=== PATIENT | male | born 1950 | race Caucasian/White ===

== ENCOUNTER 2018-11-15 15:56 | Outpatient (REF) | payer MEDICARE, SELFPAY ==
[2018-11-15 22:29] LABS: Abs Immature Grans 0.02 k/cumm (0.0-0.09); Absolute Eosinophil Count 0.06 k/cumm (0.0-0.7); Absolute Lymphocyte Count 2.17 k/cumm (1.2-3.4); Absolute Monocyte Count 0.55 k/cumm (0.11-0.7); Absolute Neutrophil Count 2.74 k/cumm (1.2-6.7); Eosinophils % 1.1; HCT 37.1 % (40.0-50.0); HGB 12.8 g/dL (13.5-17.5); Immature Grans % 0.4; Lymphocytes % 39.2; Mean Corp. HGB Concentration 34.5 g/dL (32.0-36.0); Mean Corpuscular Volume 104.2 fL (80-95); Mean Platelet Volume 10.1 fL (8.0-11.0); Monocytes % 9.9; Neutrophils % 49.4; RBC 3.56 m/cumm (4.50-6.00); RBC Distribution Width 12.9 % (11.8-14.1); White Blood Cell Count 5.54 k/cumm (4.4-10.8)
[2018-11-15 22:59] LABS: ALT 29 U/L (12-78); AST 33 U/L (15-37); Albumin 3.9 g/dL (3.4-5.0); Alkaline Phosphatase 68 U/L (46-116); Anion Gap 8.5 mmol/L (3-11); BUN 9 mg/dL (7-18); Bilirubin, Total 0.7 mg/dL (0.2-1.0); CO2 25.5 mmol/L (21.0-32.0); CREATININE 0.94 mg/dL (0.70-1.30); Calcium 8.4 mg/dL (8.5-10.1); Chloride 108 mmol/L (98-107); Glucose 99 mg/dL (70-100); Sodium 142 mmol/L (136-145); Total Protein 6.7 g/dL (6.4-8.2); Vitamin B12 486 pg/mL (193-986)
[2018-11-15 23:04] LABS: Platelet Count 96 x1000/uL (130-400)
[2018-11-15 23:06] LABS: Diff Comment PLT Morph Reviewed; Macrocytosis 2+
== END 2018-11-15 16:16 ==
LOC: NCHCN 15:56
PROVIDERS: PCP Family Medicine; Visit Provider Family Medicine
DX: D69.6 Thrombocytopenia, unspecified (principal); D46.9 Myelodysplastic syndrome, unspecified; E53.8 Deficiency of other specified B group vitamins; R53.83 Other fatigue
CPT/HCPCS: 80053; 82607; 84443; 85025

== ENCOUNTER 2018-12-27 12:35 | Outpatient (REF) | payer MEDICARE, SELFPAY ==
[2018-12-27 21:32] LABS: Mean Corp. HGB Concentration 34.4 g/dL (32.0-36.0); Mean Corpuscular Hemoglobin 36.5 pg (27.0-33.0); Mean Corpuscular Volume 106.3 fL (80-95); Platelet Count 101 x1000/uL (130-400); RBC 3.01 m/cumm (4.50-6.00); RBC Distribution Width 13.4 % (11.8-14.1); White Blood Cell Count 4.34 k/cumm (4.4-10.8)
[2018-12-27 21:38] LABS: ALT 35 U/L (12-78); AST 101 U/L (15-37); Alkaline Phosphatase 73 U/L (46-116); Anion Gap 10.5 mmol/L (3-11); BUN 22 mg/dL (7-18); Bilirubin, Total 1.7 mg/dL (0.2-1.0); CO2 25.5 mmol/L (21.0-32.0); CREATININE 1.85 mg/dL (0.70-1.30); Calcium 8.9 mg/dL (8.5-10.1); Chloride 106 mmol/L (98-107); Estimated GFR 36.76 (mL/min/1.73m2); Glucose 122 mg/dL (70-100); Lipase 189 U/L (73-393); Potassium 3.8 mmol/L (3.5-5.1); Sodium 142 mmol/L (136-145); Total Protein 6.3 g/dL (6.4-8.2)
[2018-12-28 16:06] LABS: LDH 1674 U/L (85-227)
[2018-12-30 12:25] LABS: Haptoglobin <7 mg/dL (32-197)
== END 2018-12-27 12:55 ==
LOC: NCHCN 12:35
PROVIDERS: PCP Family Medicine; Visit Provider Internal Medicine
DX: R10.13 Epigastric pain (principal); R13.10 Dysphagia, unspecified; R11.10 Vomiting, unspecified
CPT/HCPCS: 80053; 83690; 85027; 83010; 83615; 86880

== ENCOUNTER 2018-12-29 00:31 | Outpatient (CLI) | payer MEDICARE, SELFPAY ==
--- NOTE | 2018-12-29 11:30 | DI.RAD_ITS ---
SYMPTOMS/DIAGNOSIS: DYSPHAGIA, R13.10, EPIGASTRIC PAIN, R10.13, VOMITING, R11.10 BARIUM SWALLOW: Fluoroscopy Time: 58 sec Barium swallow was performed according to protocol. There is normal swallowing mechanism. No aspiration or gastroesophageal reflux was seen during the examination. No intrinsic or extrinsic masses, strictures or ulcers are present. IMPRESSION: Unremarkable barium swallow.
[2018-12-29] MEDS: Barium Sulfate 60% W/V 355 ML BTL PO (12:20)
== END 2018-12-29 00:51 ==
PROVIDERS: PCP Internal Medicine; Visit Provider Internal Medicine
DX: R13.10 Dysphagia, unspecified (principal); R10.13 Epigastric pain; R11.10 Vomiting, unspecified
CPT/HCPCS: 74220; J3490

== ENCOUNTER 2019-02-15 15:31 | Outpatient (REF) | payer MEDICARE, SELFPAY ==
[2019-02-15 21:08] LABS: Abs Immature Grans 0.02 k/cumm (0.0-0.09); Absolute Eosinophil Count 0.07 k/cumm (0.0-0.7); Absolute Lymphocyte Count 1.01 k/cumm (1.2-3.4); Absolute Monocyte Count 0.69 k/cumm (0.11-0.7); Absolute Neutrophil Count 3.45 k/cumm (1.2-6.7); Eosinophils % 1.3; HCT 25.9 % (40.0-50.0); HGB 8.5 g/dL (13.5-17.5); Immature Grans % 0.4; Lymphocytes % 19.3; Mean Corp. HGB Concentration 32.8 g/dL (32.0-36.0); Mean Corpuscular Hemoglobin 33.9 pg (27.0-33.0); Mean Corpuscular Volume 103.2 fL (80-95); Mean Platelet Volume 10.1 fL (8.0-11.0); Monocytes % 13.2; Neutrophils % 65.8; Platelet Count 113 x1000/uL (130-400); RBC 2.51 m/cumm (4.50-6.00); RBC Distribution Width 12.4 % (11.8-14.1); White Blood Cell Count 5.24 k/cumm (4.4-10.8)
[2019-02-15 21:22] LABS: Anion Gap 12.6 mmol/L (3-11); BUN 18 mg/dL (7-18); CO2 26.4 mmol/L (21.0-32.0); CREATININE 1.13 mg/dL (0.70-1.30); Calcium 8.5 mg/dL (8.5-10.1); Chloride 101 mmol/L (98-107); Glucose 106 mg/dL (70-100); Potassium 3.1 mmol/L (3.5-5.1); Sodium 140 mmol/L (136-145)
== END 2019-02-15 15:51 ==
LOC: NCHCN 15:31
PROVIDERS: PCP Internal Medicine; Visit Provider Specialist/Technologist Athletic Trainer
DX: D69.6 Thrombocytopenia, unspecified (principal); D46.9 Myelodysplastic syndrome, unspecified; Z79.01 Long term (current) use of anticoagulants
CPT/HCPCS: 80048; 85025

== ENCOUNTER 2019-03-22 10:09 | Outpatient (RCR) | payer MEDICARE, SELFPAY ==
[2019-03-22] MEDS: MAGNESIUM SULFATE 2 GM/50 ML BAG IV (10:56)
[2019-03-22] MEDS: Normal Saline Flush 10 ML SYR IVP (10:57)
== END 2019-04-20 23:59 | disposition home or self-care (01) ==
LOC: INF 10:09
PROVIDERS: PCP Internal Medicine; Visit Provider Internal Medicine
DX: E83.42 Hypomagnesemia (principal)
CPT/HCPCS: 96365; 96366

== ENCOUNTER 2023-10-26 15:45 | Outpatient (REF) | payer MEDICARE, SELFPAY ==
[2023-10-26 15:57] LABS: HCT 38.3 % (40.0-50.0); HGB 12.7 g/dL (13.5-17.5); MCH 33.9 pg (27.0-33.0); MCHC 33.2 % (32.0-36.0); MCV 102 fL (80-95); MPV 9.2 fL (8.0-11.0); Platelet Count 170 10^3/uL (130-400); RBC 3.75 10^6/uL (4.36-5.78); RDW 13.4 % (11.8-14.1); RDW-SD 50.1 fL; WBC 4.28 10^3/uL (4.4-10.8)
[2023-10-26 16:17] LABS: ALT 21 U/L (16-63); AST 13 U/L (15-37); Albumin 3.8 g/dL (3.4-5.0); Alkaline Phosphatase 54 U/L (46-116); Anion Gap 8.3 mmol/L (3-11); BUN 14 mg/dL (7-18); Bilirubin, Total 0.6 mg/dL (0.2-1.0); CO2 25.7 mmol/L (21.0-32.0); CREATININE 0.9 mg/dL (0.70-1.30); Calcium 8.8 mg/dL (8.5-10.1); Chloride 107 mmol/L (98-107); Estimated GFR 91.31 (mL/min/1.73m2); Glucose 98 mg/dL (74-106); Sodium 141 mmol/L (136-145); Total Protein 6.5 g/dL (6.4-8.2)
== END 2023-10-26 15:46 | disposition home or self-care (01) ==
LOC: NCHCN 15:45
PROVIDERS: PCP Family Medicine; Visit Provider Family Medicine
DX: Z01.89 Encounter for other specified special examinations (principal)
CPT/HCPCS: 80053; 85027

== ENCOUNTER → 2023-10-27 13:26 | Outpatient (CLI) | payer MEDICARE, SELFPAY ==
--- NOTE | 2023-10-27 | DI.MRI_ITS ---
Exam(s) MR CERVICAL SPINE WO EXAM: MR CERVICAL SPINE WO CLINICAL HISTORY: WORSENING BALANCE,WEAKNESS RT ARM AND NECK PAIN,? PROGRESSIVE MYELOPATHY TECHNIQUE: Multiplanar multisequence MRI of the cervical spine was performed without intravenous con trast. COMPARISON: MR MRI CERVICAL SPINE WO CONTRAST (GENERIC) from 09/22/2023 CR XR CERVICAL SPINE 2 OR 3 VIEWS from 10/14/2023 FINDINGS: Spinal cord: Abnormal high signal is again noted on the right side of the cervical spinal cord C4-5 l evel. This appears similar to prior exam. There are endplate osteophytes and facet spurring at encroaches into the central canal, causing moder ate stenosis of the AP dimension and foot flattening of the cord. This appears unchanged. Degenerative disc changes at other levels appear stable. No evidence of disc herniation at any level . Multilevel neural foraminal narrowing is again noted. IMPRESSION: Stable size and appearance of spinal cord myelomalacia at the C4-5 level. No new findings. DATA REPOSITORY:
== END ==
PROVIDERS: PCP Family Medicine; Visit Provider Physician Assistant Medical
DX: G95.89 Other specified diseases of spinal cord (principal)
CPT/HCPCS: 72141